=== PATIENT | male | born 1970 | race Caucasian/White ===

== ENCOUNTER → 2019-09-03 14:43 | Outpatient (BNVA) | payer OTHER, SELFPAY | PROVIDERS: Family Provider Internal Medicine; Visit Provider Family Medicine | DX: J02.9 Acute pharyngitis, unspecified (principal); R50.9 Fever, unspecified; J01.00 Acute maxillary sinusitis, unspecified | CPT/HCPCS: 87081; 87400; 87880 ==

== ENCOUNTER 2020-03-21 10:22 | Emergency (ER) | payer SELFPAY ==
[2020-03-21 10:24] VITALS: BP 135/99; PULSE 76; RESP 18; TEMP 36.5; O2SAT 98; BMI 31.0
--- NOTE | 2020-03-21 10:31 | W.ED.EYEPROB ---
HPI - Eye Problem General: Chief complaint: Eye Problems Stated complaint: Eye Pain Time Seen by Provider: 03/21/20 10:24 Source: patient Mode of arrival: ambulatory Limitations: no limitations History of Present Illness: MD chief complaint: eye pain and eye redness Onset (ago): day(s) (1) Duration: constant Location: left eye Eye Symptoms: burning, redness, pain and foreign body sensation Place: home Mechanism: chemical exposure Severity: moderate If Pain, Quality: burning Associated symptoms: Reports no associated symptoms; Denies fever(s), headache(s), nausea, neck pain or vomiting Treatments Prior to Arrival: irrigated eye Review of Systems General: Reports: 10 or more systems reviewed and unremarkable except in HPI and below Const: Denies: fever(s) or chills Eyes: Reports: change in vision, blurry vision, eye discomfort and eye redness ENMT: Denies: throat pain, odynophagia, mouth pain, dental pain, ear or mastoid pain or nasal discharge Card: Denies: chest pain or palpitations Resp: Denies: dyspnea, productive cough, wheezing or pain on inspiration GI: Denies: abdominal pain, nausea, vomiting or diarrhea Musc: Denies: neck pain or back pain Skin/Breast: Denies: rash or pruritus Neuro: Denies: headache(s), numbness in extremities or weakness in extremities PFSH ED PFSH: Social History Smoking and tobacco status: current every day smoker smokeless tobacco Physical Exam Const: COMMON NORMALS: no acute distress, average body habitus, patient oriented x3, no limitations, healthy appearing, alert and well nourished HENMT: COMMON NORMALS: normocephalic, atraumatic, hearing grossly normal bilaterally, external ears normal, EAC's normal, TM's normal bilaterally, Normal external nose present, Normal nasal mucous membranes and turbinates present, moist oral mucous membranes, oropharynx normal, dentition normal and gingiva normal HEAD & SCALP: normocephalic and atraumatic NOSE: Normal external nose present and Normal nasal mucous membranes and turbinates present EXTERNAL EAR: Yes external ears normal EXTERNAL AUDITORY CANAL: EAC's normal TYMPANIC MEMBRANE: TM's normal bilaterally Eye: COMMON NORMALS: EOMs intact bilaterally, no papilledema and fundi normal bilaterally GENERAL EYE: normal light reflex CONJUNCTIVA: Yes conjunctival abnormal positive left SCLERA: scleral abnormal CORNEA: Yes fluorescein used and other (2/3 medial aspect of cornea had fluorescein uptake) DIRECT OPHTHALMOSCOPY: Yes normal light reflex, Yes no papilledema and Yes fundi normal bilaterally Neuro: COMMON NORMALS: patient oriented x3 SENSORIUM/ORIENTATION: Yes alert Course Vital Signs: Vital signs: Vital Signs Temperature 97.7 F 03/21/20 10:24 Pulse Rate 76 03/21/20 10:24 Respiratory Rate 18 03/21/20 10:24 Blood Pressure 135/99 03/21/20 10:24 Pulse Oximetry 98 03/21/20 10:24 MDM - Eye Problem MDM Narrative: Medical decision making narrative: Pt is well appearing non toxic and in no acute distress. Pt ph of left eye is normal. PTs eye examined under sorto lamp 2/3 medial aspect of cornea had fluorescein uptake. This is worrisome for corneal ulceration. I called and discussed case with Dr. Orion ENNIS who advised to start him on Erythromycin ointment as well as Poly/Trim gtts and they will see him on monday in the office. Return precautions advised and home care reviewed. Differential Diagnosis: Eye Problem Differential Diagnosis: Likely corneal abrasion, acute iritis, subconjunctival hemorrhage, corneal ulcer and ruptured globe Discharge Plan Discharge Patient Disposition: Home Clinical Impression: Corneal ulceration Qualifiers: Laterality: left Qualified Code(s): H16.002 - Unspecified corneal ulcer, left eye Condition: Stable Prescriptions: New erythromycin 5 mg/gram (0.5 %) ointment 1 applic ophthalmic (eye) BID 5 Days Qty: 1 RF: 0 [place] 5-325 mg tablet 1 tab PO Q6H 3 Days Qty: 12 RF: 0 polymyxin B sulf-trimethoprim 10,000 unit- 1 mg/mL drops 1 drop ophthalmic (eye) QID 5 Days Qty: 1 RF: 0 No Action Adult Probiotic 3 billion cell capsule 3,000 mmu cells PO DAILY Qty: 24 RF: 0 Discharge Orders: Discharge Order (Routine); Ordered 03/21/20 Ordered By: Addie Walsh Referrals: Tyron Hussein MD [Family Provider] - Tyree Sears MD [Physician] - 03/23/20 Discharge Diet: Advance as tolerated Discharge Activity: Resume usual activity Patient Instructions: Corneal Ulcer (ED) Activity Restrictions/Additional Instructions: Please take meds as prescribed [place] do not drive or operate heavy machinery while taking [place] Please follow up with Dr. Sears on monday magdaleno call his office 8am and tell motel front desk clerk ER spoke with PA and you are to be seen on Monday Coding Level of Care Code ED Transcribing Operators Supervisor for Wesg Fwd Exam Expanded Problem Focused
[2020-03-21 11:21] VITALS: BP 135/80; PULSE 75; RESP 18; O2SAT 97
== END 2020-03-21 11:21 | disposition home or self-care (01) ==
PROVIDERS: Emergency Provider Registered Nurse; Family Provider Internal Medicine
DX: H16.002 Unspecified corneal ulcer, left eye (principal); F17.290 Nicotine dependence, other tobacco product, uncomplicated
CPT/HCPCS: 12345; 99281; 99282

== ENCOUNTER → 2022-05-31 09:27 | Outpatient (BNVA) | payer SELFPAY | PROVIDERS: PCP Internal Medicine; Referring Provider Dermatology; Visit Provider Dermatology | DX: Z01.89 Encounter for other specified special examinations (principal) ==

== ENCOUNTER → 2022-08-30 09:31 | Outpatient (BNVA) | payer SELFPAY | PROVIDERS: PCP Internal Medicine; Visit Provider Dermatology | DX: Z01.89 Encounter for other specified special examinations (principal) ==

== ENCOUNTER → 2022-11-29 10:29 | Outpatient (BNVA) | payer SELFPAY | PROVIDERS: PCP Internal Medicine; Referring Provider Nurse Practitioner; Visit Provider Dermatology | DX: Z01.89 Encounter for other specified special examinations (principal) ==

== ENCOUNTER → 2023-05-30 10:46 | Outpatient (BNVA) | payer SELFPAY | PROVIDERS: PCP Internal Medicine; Visit Provider Dermatology | DX: Z01.89 Encounter for other specified special examinations (principal) ==